=== PATIENT | male | born 1950 | race Caucasian/White ===

== ENCOUNTER 2016-12-25 18:45 | Emergency (ER) | payer OTHER ==
[~2016-12-25] VITALS: Ht 170.2 cm; Wt 77.0 kg
[2016-12-25 18:52] VITALS: Ht 170.2 cm; Wt 77.0 kg
[2016-12-25] MEDS ORDERED: NA PHOSPHATE/BIPHOS 133 ML ENEMA PR ONE (19:30)
--- NOTE | 2016-12-25 20:24 | RADRPT ---
PROCEDURE: XR Abdomen. CLINICAL INDICATION: Abdominal pain, constipation. TECHNIQUE: Supine AP views of the abdomen. COMPARISON: None. FINDINGS: There are no dilated loops of small bowel to suggest a bowel obstruction. A normal amount of gas an d stool are seen within nondilated large bowel. No abnormal calcifications are identified. IMPRESSION: 1. Nonobstructive bowel gas pattern. 2. Normal amount of gas and stool in the colon. RPTAT: HTAR .Jules Jasso MD, MD Date Time Electronically viewed and signed by .Jules Jasso MD, on 12/25/2016 20:24 .R/
--- NOTE | 2016-12-25 21:09 | ERD ---
ER Documentation Chief Complaint Date/Time DATE: 12/25/16 TIME: 20:59 Chief Complaint constipation x 1 day. denies abd pain HPI This pleasant 66-year-old male patient presents to emergency department today for inability to pass hard stool. 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 Patient states he had a normal bowel movement yesterday, today he was unable to pass stool. Patient has not spoke to his primary care physician about the difficulties he has been having passing stool. Patient has used stool softeners with little relief of symptoms. Patient states "I feel a large hard stool in my rectum".patient denies any blood in stools, denies prostatitis or dysuria. ROS All systems reviewed and are negative except as per history of present illness. Medications Home Meds Active Scripts Polyethylene Glycol* (Miralax*) 17 Gm Powd.pack, 17 GM PO DAILY, #7 Prov:URBAN DAO 12/25/16 Allergies Allergies: Coded Allergies: No Known Drug Allergies (Verified Allergy, Unknown, 12/25/16) PMhx/Soc History of Surgery: No Anesthesia Reaction: No Hx Neurological Disorder: Yes (CVA x 2 , 2015) Hx Respiratory Disorders: No Hx Cardiac Disorders: Yes (HTN) Hx Miscellaneous Medical Probl: Yes (DM) Hx Alcohol Use: No Hx Substance Use: No Hx Tobacco Use: No Smoking Status: Never smoker Physical Exam Vitals Vital Signs Date Time Temp Pulse Resp B/P Pulse Ox O2 Delivery O2 Flow Rate FiO2 12/25/16 18:52 98.2 94 20 128/62 95 Vitals stable, triage notes reviewed Physical Exam Const: Well-appearing, well-hydrated, no acute distress Head: Atraumatic Eyes: Normal Conjunctiva ENT: Normal External Ears, Nose and Mouth. Neck: Full range of motion..~ No meningismus. Resp: Clear to auscultation bilaterally Cardio: Regular rate and rhythm, no murmurs Abd: Abdomen soft, tender to palpation across all 4 quadrants, negative CVA tenderness. Rectal: Normal tone, No mass, fissure, or ulcer Stool: Brown Skin: No petechiae or rashes Back: Ext: Neur: Awake and alert Psych: Normal Mood and Affect Results 24 hrs Current Medications Medications (Trade) Dose Ordered Sig/Bianka Route PRN Reason Start Time Stop Time Status Last Admin Dose Admin Sodium Biphosphate/ Sodium Phosphate (Fleet Enema) 133 ml ONCE ONCE OK 12/25/16 19:30 12/25/16 19:31 DC 12/25/16 19:30 Procedures/MDM This 66-year-old male patient presents to emergency department today for chronic constipation, and reports he is unable to pass hard stool. Patient feels stool in rectum, is currently taking stool softeners, history of CVA. Patient also reports recent hospitalization last week. Patient is in a wheelchair, has not spoke to his primary care physician about constipation, low suspicion for rectal mass, anal fissure, rectal prolapse or bowel obstruction. Abdominal x-ray documents there are no dilated loops of small bowel to suggest a bowel obstruction, and normal amount of gas and stool are seen within the nondilated large bowel. No abnormal calcifications identified. Patient given a enema in emergency department was able to pass a large amount of brown hard stool with assistance. Will be discharged home with MiraLAX, increase fluids, follow-up with primary care physician for bowel bowel program. Return to emergency department for rectal bleeding pain, fever. Abdominal pain. I feel the patient is stable for discharge at this time. I have discussed results, examination findings, the treatment plan with the patient and family present prior to discharge. Indications for emergent reevaluation, side effects of medication were also discussed. All questions were answered. Patient verbalizes understanding and agrees with plan of care. Departure Diagnosis: Primary Impression: Fecal impaction in rectum Additional Impression: Constipation Constipation type: unspecified constipation type Qualified Code: K59.00 - Constipation, unspecified constipation type Condition: Good Patient Instructions: Constipation (Adult) Additional Instructions: Thank you for for coming to [facility] [place] for your care today. Please ask your nurse or provider if you have questions about your care today and do not leave until all your questions have been answered. Please use any medications given as directed and follow-up with your doctor (or the doctor you were referred to) in the next 2-3 days. If you do not have a primary care doctor you may follow up at the [facility] (listed below). You may also use motrin and tylenol as needed for fever and/or pain unless instructed otherwise by your provider or nurse. Indications for more urgent follow-up have been discussed, but you may return to the Emergency Department at ANY time for any worrisome or worsening symptoms. If you have abdominal pain, please know that no test or exam you received is perfect and you should follow up within 8 hours for continued pain. If you had any imaging studies today, such as an X-Ray or CT Scan, these studies will be reviewed later by a radiologist. You will be called if there are important findings that were not identified today, so make sure the contact information you provided at registration is correct. If you received any narcotic pain control medicine today, such as Vicodin, Morphine or Dilaudid, your coordination and judgment may be affected for a number of hours. Please do not drive or operate heavy machinery, and you may want someone to assist you at home. If you were given a prescription for narcotic medication, be aware that it is very addictive- use sparingly and only if necessary. URBAN DAO Dec 25, 2016 21:09
[2016-12-25] MEDS ORDERED: POLY17PO6 PO (21:11)
[2016-12-25 21:25] VITALS: BP 124/64; PULSE 88; RESP 16
== END 2016-12-25 21:26 | disposition home or self-care (01) ==
LOC: FTE 18:45
DX: K56.41 Fecal impaction (principal); I10 Essential (primary) hypertension; E11.9 Type 2 diabetes mellitus without complications
CPT/HCPCS: 74000

== ENCOUNTER 2018-09-05 16:56 | Observation (INO) | payer OTHER ==
[~2018-09-05] VITALS: Ht 170.2 cm; Wt 75.2 kg
[~2018-09-05 16:56] MED LIST: POLY17PO6 PO
[2018-09-05] MEDS ORDERED: PIPER-TAZO 3.375 GM IV (PMX) 100 ML IVPB ONE (22:00)
[2018-09-05] MEDS ORDERED: VANCOMYCIN 1 GM (PMX) 250 ML IVPB ONE (22:00)
--- NOTE | 2018-09-05 22:29 | ERD ---
ER Documentation Chief Complaint Chief Complaint Sent from for evaluation, possible admission osteomylitis left great toe HPI 68-year-old male history of diabetes, hypertension, hyperlipidemia, CVA with right hemiparesis referred to the ED by Dr Rossi, for evaluation of diabetic foot infection of the left great toe which is been resistant to outpatient treatment. Patient denies pain but foot is insensate due to diabetic neuropathy. Denies recent trauma or injury. No chest pain, palpitations, shortness of breath, abdominal pain, nausea or vomiting. No fevers or chills. ROS All systems reviewed and are negative except as per history of present illness. Medications Home Meds Active Scripts Vancomycin/0.9 % Sod Chloride (Vanco 1 Gram/150 ml-0.9% NaCl) 1 Gm/150 Ml Plast..bag, 1 GM IV DAILY for 42 Days Prov:MEGA MAXWELL MD 09/06/18 Ceftriaxone Sod* (Rocephin* 1GM/50ML (PMX)) 1 Gm/50 Ml Iv.soln., 1 GM IVPB DAILY for 42 Days, EA Prov:MEGA MAXWELL MD 09/06/18 Polyethylene Glycol* (Miralax*) 17 Gm Powd.pack, 17 GM PO DAILY, #7 Prov:SYLWIAURBAN 12/25/16 Reported Medications Methylcellulose (FIBER) 500 Mg Tablet, 500 MG PO, TAB 09/05/18 Ubidecarenone (Coq-10) 100 Mg Capsule, 100 MG PO, CAP 09/05/18 Ubidecarenone (COQ10) 50 Mg Tab.chew, 50 MG PO, TAB.CHEW 09/05/18 Aspirin* (Aspirin*) 325 Mg Tablet, 325 MG PO DAILY, TAB 09/05/18 Docusate Sodium* (Docusate Sodium*) 100 Mg Capsule, 100 MG PO BID, #60 CAP 09/05/18 Lactobacillus Combo No.11 (Probiotic) 1 Each Cap.sprink, 1 CAP PO DAILY, CAP 09/05/18 Albuterol Sulfate* (Ventolin HFA*) 18 Gm Hfa.aer.ad, 2 PUFF INHALATION Q4H, #1 INHALER 09/05/18 Metformin* (Glucophage*) 500 Mg Tab, 500 MG PO BID for 90 Days, #180 09/05/18 Atorvastatin* (Atorvastatin*) 40 Mg Tablet, 40 MG PO QHS for 90 Days, #90 09/05/18 Glipizide* (Glipizide*) 5 Mg Tablet, 2.5 MG PO BID for 90 Days 09/05/18 Glimepiride* (Glimepiride*) 1 Mg Tablet, 1 MG PO DAILY for 30 Days, #30 09/05/18 Lisinopril* (Lisinopril*) 2.5 Mg Tablet, 2.5 MG PO DAILY for 30 Days, #30 09/05/18 Metoprolol Succinate* (Toprol XL*) 50 Mg Tab.er.24h, 50 MG PO DAILY for 30 Days, #30 09/05/18 Allergies Allergies: Coded Allergies: No Known Drug Allergies (Unverified Allergy, Unknown, 09/05/18) PMhx/Soc Reviewed in chart. As per HPI. History of Surgery: Yes (ACID L chest, Bilat cataract) Anesthesia Reaction: No Hx Neurological Disorder: Yes (CVA x 2 , 2015) Hx Respiratory Disorders: No Hx Cardiac Disorders: Yes (HTN) Hx Psychiatric Problems: No Hx Miscellaneous Medical Probl: Yes (DM) Hx Alcohol Use: Yes (Every now and then) Hx Substance Use: No Hx Tobacco Use: No (Quit at age 32) Smoking Status: Former smoker FmHx No family history relevant to presenting complaint Physical Exam Vitals Vital Signs Date Temp Pulse Resp B/P (MAP) Pulse Ox O2 O2 Flow FiO2 Time Delivery Rate 09/05/18 98.1 78 20 133/69 96 Room Air 22:08 (90) 09/05/18 98.1 60 20 147/67 96 17:05 (93) Physical Exam Const: No acute distress Head: Atraumatic Eyes: Normal Conjunctiva ENT: Normal External Ears, Nose and Mouth. Neck: Full range of motion. No meningismus. Resp: Breath sounds are equal and clear to auscultation bilaterally Cardio: Regular rate and rhythm, no murmurs Abd: Soft, non tender, non distended. Normal bowel sounds Skin: No petechiae or rashes Back: No midline or flank tenderness Ext: Left Foot: Dorsalis pedis pulse is 4+. Big toe: Swelling, discoloration and plantar ulceration. No subcutaneous crepitus. No lymphangitic streaking. Neur: Awake and alert. Right hemiparesis Psych: Normal Mood and Affect Result Diagram: 09/05/18214909/05/182149 Results 24 hrs Laboratory Tests Test 09/05/18 21:50 White Blood Count 5.0 10^3/ul Red Blood Count 4.05 10^6/ul Hemoglobin 12.3 g/dl Hematocrit 37.4 % Mean Corpuscular Volume 92.3 fl Mean Corpuscular Hemoglobin 30.4 pg Mean Corpuscular Hemoglobin Concent 32.9 g/dl Red Cell Distribution Width 13.6 % Platelet Count 179 10^3/UL Mean Platelet Volume 9.6 fl Immature Granulocytes % 0.200 % Neutrophils % 67.9 % Lymphocytes % 20.1 % Monocytes % 7.2 % Eosinophils % 4.0 % Basophils % 0.6 % Nucleated Red Blood Cells % 0.0 /100WBC Immature Granulocytes # 0.010 10^3/ul Neutrophils # 3.4 10^3/ul Lymphocytes # 1.0 10^3/ul Monocytes # 0.4 10^3/ul Eosinophils # 0.2 10^3/ul Basophils # 0.0 10^3/ul Nucleated Red Blood Cells # 0.0 10^3/ul Sodium Level 139 mmol/L Potassium Level 4.2 mmol/L Chloride Level 101 mmol/L Carbon Dioxide Level 28 mmol/L Anion Gap 10 Blood Urea Nitrogen 18 mg/dl Creatinine 0.47 mg/dl Est Glomerular Filtrat Rate mL/min > 60 mL/min Glucose Level 112 mg/dl Calcium Level 9.3 mg/dl Total Bilirubin 0.5 mg/dl Direct Bilirubin 0.00 mg/dl Indirect Bilirubin 0.5 mg/dl Aspartate Amino Transf (AST/SGOT) 42 IU/L Alanine Aminotransferase (ALT/SGPT) 34 IU/L Alkaline Phosphatase 93 IU/L Total Protein 7.9 g/dl Albumin 3.7 g/dl Globulin 4.20 g/dl Albumin/Globulin Ratio 0.88 Current Medications Medications Dose Sig/Bianka Start Time Status Last (Trade) Ordered Route PRN Stop Time Admin Dose Reason Admin Piperacillin 100 ml @ ONCE ONCE 09/05/18 DC 09/06/18 Sod/ 200 mls/hr IVPB 22:00 00:37 Tazobactam 09/05/18 22:29 Sod Vancomycin 250 ml @ ONCE ONCE 09/05/18 DC 09/06/18 HCl 125 mls/hr IVPB 22:00 01:16 09/05/18 23:59 Procedures/MDM DOCUMENTS REVIEWED: ED nurse, prior ED records EKG: Time: 21:50. Ventricular paced rhythm. Rate 76. No acute ischemic EKG changes. No ectopy. My Interpretation IMAGING: Chest AP portable. The cardiac silhouette is normal. The costophrenic angles are clear. No effusions or infiltrates. Cardiac rhythm device left chest wall with wires intact. My interpretation. Left foot, PA, lateral and oblique views: No fracture or dislocation. No subcutaneous emphysema or significant soft tissue swelling. Bony erosions at the tip of the left great toe possibly secondary to osteomyelitis. My interpretation. MEDICAL DECISION MAKIN-year-old male history of diabetes, hypertension, hyperlipidemia, CVA with right hemiparesis referred to the ED by Dr Rossi, for evaluation of diabetic foot infection of the left great toe which is been resistant to outpatient treatment. CBC significant for borderline anemia but no leukocytosis or thrombocytopenia. Chemistry is negative for renal insufficiency, electrolyte abnormalities or hyperglycemia. Patient presents with diabetic foot infection of the left great toe that has been refractory to outpatient treatment. Possible osteomyelitis. No subcutaneous emphysema or signs of gangrene or necrotizing fasciitis. No criteria for systemic inflammatory response syndrome. Pulses are 4+ arterial insufficiency is not ruled out. IV antibiotics initiated after cultures. Admit to med/surg, for further evaluation and management. CALLS/CONSULTS: Time: 22:02, Dr. Rossi. Request admission for IV antibiotics and further evaluation for osteomyelitis. PATIENT CARE TRANSITIONED: Time: 22:26, Dr. Maxwell Counseled patient regarding diagnosis, diagnostic results and plan for admission. Departure Diagnosis: Primary Impression: Diabetic infection of left foot Additional Impressions: Diabetes mellitus type 2 in obese History of CVA with residual deficit Condition: Serious NIKKI SETH MD Sep 05, 2018 22:29
[2018-09-05] MEDS ORDERED: ONDANSETRON 4 MG INJ IV PRN (23:00)
[2018-09-05] MEDS ORDERED: ACETAMINOPHEN 325 MG TAB PO PRN (23:00)
[2018-09-05 23:19] VITALS: Ht 170.2 cm; Wt 75.2 kg
[2018-09-05] MEDS ORDERED: METF-849 PO (23:28)
[2018-09-05] MEDS ORDERED: GLIP5TAB13 PO (23:28)
[2018-09-05] MEDS ORDERED: METO-319 PO (23:28)
[2018-09-05] MEDS ORDERED: LISI2.5T59 PO (23:28)
[2018-09-05] MEDS ORDERED: GLIM1TAB2 PO (23:28)
[2018-09-05] MEDS ORDERED: ALBU18HF INHALATION (23:28)
[2018-09-05] MEDS ORDERED: ATOR40TA68 PO (23:28)
[2018-09-05] MEDS ORDERED: VANCOMYCIN IV PER PHARMACY XX SCH (23:30)
[2018-09-05] MEDS ORDERED: ASPI325T30 PO (23:35)
[2018-09-05] MEDS ORDERED: UBID50TA PO (23:35)
[2018-09-05] MEDS ORDERED: UBID100C24 PO (23:35)
[2018-09-05] MEDS ORDERED: DOCU-159 PO (23:35)
[2018-09-05] MEDS ORDERED: METH-360 PO (23:35)
[2018-09-05] MEDS ORDERED: LACT1CAP56 PO (23:35)
[2018-09-05] MEDS ORDERED: DEXTROSE 50% 50 ML SYRINGE IV PRN ×2 (23:45)
[2018-09-05] MEDS ORDERED: GLUCAGON 1 MG INJ IM PRN (23:45)
[2018-09-05] MEDS ORDERED: GLUCOSE GEL 15 GRAM TUBE PO PRN ×2 (23:45)
[2018-09-05] MEDS ORDERED: GLUCOSE GEL 15 GRAM TUBE BUCCAL PRN (23:45)
[2018-09-06] VITALS: BP 135/63; PULSE 83; RESP 18
[2018-09-06] MEDS ORDERED: PENDING SANTYL ORDER FOR WOUND CARE XX PRN
[2018-09-06 01:14] VITALS: BP 114/56; PULSE 84; RESP 18
[2018-09-06] MEDS: PIPER-TAZO 3.375 GM IV (PMX) 100 ML IVPB SCH ×2 (06:00→15:14)
[2018-09-06] MEDS ORDERED: VANCOMYCIN 1 GM 250 ML IVPB SCH (06:00)
[2018-09-06 07:27] VITALS: BP 124/59; PULSE 76; RESP 20
[2018-09-06] MEDS: INSULIN ASPART [NOVOLOG] 3 ML PEN SC SCH ×3 (08:00→18:10)
[2018-09-06] MEDS ORDERED: DEXTROSE 5%-0.45% NACL 1,000 ML IV SCH (08:30)
[2018-09-06] MEDS ORDERED: LIDOCAINE 1% (MPF) 5 ML VIAL SC ONE ×2 (09:30→12:30)
[2018-09-06] MEDS ORDERED: VANC1PLA15 IV (10:02)
[2018-09-06] MEDS ORDERED: CEFT1PIG2 IVPB (10:02)
--- NOTE | 2018-09-06 10:04 | PDOCDIS ---
Discharge Instructions CONDITION [id number] Patient Condition: Aywgs1m Good HOME CARE INSTRUCTIONS: [id number] Diet Instructions: [id number] Activity Restrictions: [id number] Slowly Increase Activity FOLLOW UP/APPOINTMENTS Follow-up Plan pcp [address] Rossi [address] Christine 1 week MEGA KENR MD Sep 06, 2018 10:04
--- NOTE | 2018-09-06 10:41 | DS ---
DATE OF ADMISSION: 09/05/2018 DATE OF DISCHARGE: 09/06/2018 DISCHARGE DIAGNOSES: A 68-year-old male with; 1. Left great toe infection, diabetic cellulitis/ostial myelitis. 2. Type 2 diabetes mellitus. 3. Hypertension. 4. Hyperlipidemia. 5. History of prior cerebrovascular accident. 6. Status post ICD placement. HOSPITAL COURSE: A 68-year-old male with a chronic diabetic great toe infection involving the left f oot was referred to emergency room by his print graphic designer. The patient denies any fevers or chills. Ther e was no leukocytosis. The patient has had an ICD placed in the past and MRI could not be obtained. However, x-ray of the foot showed possible small erosions of the distal tuft of the 1st digit consis tent with osteomyelitis. The patient wished to receive 6 weeks of IV antibiotics prior to possible p artial amputation of the left great toe. I left a voice mail with Dr. Rees and discussed the case with the print graphic designer. He is in a stable condition for discharge. PICC line placement was ordered. T he patient will receive 6 weeks of IV vancomycin and Rocephin. Wound culture was also requested. Th e patient will follow up with PCP, podiatry and Dr. Rees as outpatient. Dictated By: MEGA KERN MD SK/GUILLERMO Conf#: [id number] DID#: [id number] CC: LICHA HARKINS MD; MEGA KERN MD; VIGNESH REES MD;*EndCC*
--- NOTE | 2018-09-06 10:54 | HP ---
DATE OF ADMISSION: 09/05/2018 CHIEF COMPLAINT: Left great toe infection. HISTORY OF PRESENT ILLNESS: A 68-year-old gentleman with history of type 2 diabetes mellitus, hypert ension, hyperlipidemia, and previous stroke, was referred to emergency room by his biofuels manager. The p atient has had a left great toe infection for several months. He denies any fevers or chills. Accor ding to his biofuels manager, the patient has had pus coming in a of the great toe wound. A plain x-ray sh owed possible small erosions of the distal tuft of the 1st digit consistent with osteomyelitis. The patient cannot have an MRI because of ICD placement in the past. PAST MEDICAL HISTORY: 1. Type 2 diabetes mellitus. 2. Hypertension. 3. Hyperlipidemia. 4. History of old cerebrovascular accident. 5. Chronic left great toe infection. PAST SURGICAL HISTORY: Status post ICD placement. MEDICATIONS PRIOR TO ADMISSION: 1. Albuterol inhaler. 2. Lipitor. 3. Lisinopril. 4. Metoprolol. 5. Aspirin. 6. Colace. 7. Lactobacillus. 8. Glimepiride. 9. Glipizide. 10. Metformin. SOCIAL HISTORY: The patient lives at home. He denies tobacco or alcohol use. PHYSICAL EXAMINATION: GENERAL: Well-developed, well-nourished gentleman, who is in no apparent distress. VITAL SIGNS: Stable. He is afebrile. HEENT: Extraocular muscles intact. Pupils are equal and reactive to light bilaterally. Sclerae are anicteric. Oropharynx is clear and moist. NECK: Supple, no JVD, no carotid bruits. LUNGS: Clear to auscultation bilaterally. CARDIAC: Regular rate and rhythm. No murmurs, rubs or gallops. ABDOMEN: Soft, nontender, nondistended. Normoactive bowel sounds. EXTREMITIES: Left great toe with diffuse edema and mild erythema. NEUROLOGICAL: The patient has decreased sensation in bilateral feet. Motor strength is equal in all extremities. LABORATORY DATA: WBCs 5000. Basic metabolic panel is within normal limits. ASSESSMENT: 1. A 68-year-old male with left great toe infection/osteomyelitis. The patient wishes to receive 6 weeks of IV antibiotics prior to possible partial amputation of great toe. 2. Type 2 diabetes mellitus. 3. Hypertension. 4. Hyperlipidemia. 5. History of prior CVA. 6. Status post ICD placement. PLAN: 1. Place in med/surg observation, IV vancomycin and Zosyn. 2. Proceed with PICC line placement. 3. Plan of care was discussed with patient and his biofuels manager, Dr. Harkins. Dictated By: MEGA KERN MD SK/NTS Conf#: [id number] DID#: [id number] CC: VIGNESH REES MD; MEGA KERN MD; LICHA HARKINS MD;*EndCC*
[2018-09-06 13:59] VITALS: BP 130/60; PULSE 66; RESP 20
[2018-09-06] MEDS ORDERED: VANCOMYCIN HCL 1.5 GM in SOD CHLORIDE 0.9% 250 ML IVPB SCH (20:00)
--- NOTE | 2018-09-06 20:41 | PN ---
DATE: 09/06/2018 REQUESTING PHYSICIAN: Eze Kern MD Thank you Dr. Kern for this consultation. HISTORY OF PRESENT ILLNESS: This is a 68-year-old man who was admitted with left great toe osteomyel itis for antibiotic management. The patient with a history of diabetes, hypertension, hyperlipidemia , coronary artery disease status post AICD, previous cerebrovascular accident. The patient was started on IV vancomycin and Zosyn. His brewing director is Dr. Rossi who recommends to treat patient with long-term IV antibiotics and if he does not respond to therapy, he may requir e toe amputation. SOCIAL HISTORY: The patient denies smoking, alcohol or illicits. REVIEW OF SYSTEMS: All negative except as per history of present illness. OBJECTIVE: VITAL SIGNS: The patient had been afebrile since admission. Current temperature 98.3, pulse 66, res pirations 20, blood pressure 130/60, saturation 97% on room air. WBC on admission yesterday was 5, H and H 12.3 and 37.4, platelets 179, no shift, no bands. BUN 18, creatinine 0.47. DIAGNOSTICS: Chest x-ray on admission revealed no consolidation or edema. X-ray of the foot reveale d possible small erosions of the distal tuft of the first digit, which could reflect osteomyelitis. PHYSICAL EXAMINATION: GENERAL: This is well-nourished, well-developed, very pleasant elderly man who is alert, in no distr ess. HEENT: Head atraumatic, normocephalic. Sclerae anicteric. Buccal mucosa pink. NECK: Supple. CHEST: Rise symmetrical. Breath sounds clear. HEART: S1, S2. ABDOMEN: Soft, bowel sounds present. EXTREMITIES: Left great toe some bluish discoloration that is very dry and peeling. IMPRESSION: A 68-year-old man with numerous medical problems admitted with left great toe osteomyeli tis. PLAN: To discharge him on IV antibiotics with vancomycin and Rocephin to continue for 6 weeks. A PI CC line was placed. Patient to follow with podiatry outpatient. Above was discussed with Dr. Kern. Dictated By: ALEX NIETO COOK DESSERT for ANDREY ELISE MD NI/NTS Conf#: [id number] DID#: [id number] CC: EZE KERN MD;*End*
[2018-09-08] MEDS ORDERED: INFLUENZA VIRUS VACCINE 0.5 ML (DISPENSING) IM* ONE (10:00)
== END 2018-09-06 18:25 | disposition home or self-care (01) ==
LOC: E/R 16:56 → 2NE 22:38 → INTOOBSV 22:38
PROVIDERS: ADMIT Internal Medicine; ATTEND Internal Medicine
DX: M86.672 Other chronic osteomyelitis, left ankle and foot (principal); L03.032 Cellulitis of left toe; E11.9 Type 2 diabetes mellitus without complications; I10 Essential (primary) hypertension; E78.5 Hyperlipidemia, unspecified; Z87.891 Personal history of nicotine dependence; Z95.810 Presence of automatic (implantable) cardiac defibrillator; Z86.73 Personal history of transient ischemic attack (TIA), and cerebral infarction without residual deficits; Z79.82 Long term (current) use of aspirin; Z79.84 Long term (current) use of oral hypoglycemic drugs
CPT/HCPCS: 36415; 36569; 71045; 73630; 76937; 80053; 82962; 85025; 87040; 87081; 93005; 99285; G0378; J1815; J2543; J3370; J7042; 99217; J7050